=== PATIENT | male | born 1955 | race Two or more races ===

== ENCOUNTER 2024-09-16 16:53 | Inpatient (IN) | payer MEDICARE, OTHER ==
[~2024-09-16] VITALS: Ht 172.7 cm; Wt 89.8 kg
[2024-09-16 18:00] LABS: CARBON DIOXIDE 24 mmol/L (21-32); CHLORIDE 97 mmol/L (98-107); CREATININE 1.5 mg/dL (0.6-1.3); GLUCOSE 108 mg/dL (74-106); SODIUM SERUM 136 mmol/L (136-145); UREA NITROGEN, BLOOD 25 mg/dL (7-18)
[2024-09-16] MEDS: DILTIAZEM HCL 25 MG IV IVP ONE (18:00)
[2024-09-16] MEDS ORDERED: DILTIAZEM HCL 25 MG IV ONE (18:02)
[2024-09-16] MEDS ORDERED: BETA15CR5 TP (18:07)
[2024-09-16] MEDS ORDERED: CARV25TA PO (18:07)
[2024-09-16] MEDS ORDERED: DEEP SEA NASAL IH (18:07)
[2024-09-16] MEDS ORDERED: ERGO500093 PO (18:07)
[2024-09-16] MEDS ORDERED: IBUP-1957 PO (18:07)
[2024-09-16] MEDS ORDERED: FLUT1BLS6 IH (18:07)
[2024-09-16 18:11] LABS: BASOPHILS % (AUTO) 0.4 % (0.0-2.0); EOSINOPHILS # (AUTO) 0.1 K/uL (0.0-0.7); EOSINOPHILS % (AUTO) 1.1 % (0.0-6.0); HEMATOCRIT 45 % (39-51); HEMOGLOBIN 15.6 g/dL (13.5-17.5); LYMPHOCYTES # (AUTO) 0.6 K/uL (0.8-4.8); LYMPHOCYTES % (AUTO) 7.7 % (20.0-44.0); MEAN CORPUSCULAR HEMOGLOBIN 30 PG (26.0-33.0); MEAN CORPUSCULAR HGB CONC 34 g/dl (31.0-36.0); MEAN CORPUSCULAR VOLUME 86 fL (80-96); MONOCYTES # (AUTO) 0.4 K/uL (0.1-1.30); MONOCYTES % (AUTO) 4.5 % (2.0-12.0); NEUTROPHILS # (AUTO) 6.8 K/uL (1.8-8.9); NEUTROPHILS % (AUTO) 86.3 % (43.0-81.0); RED BLOOD CELL COUNT(AUTO) 5.27 MIL/uL (4.5-6.0); RED CELL DISTRIBUTION WIDTH 14.9 % (11.5-15.0); WHITE BLOOD COUNT (AUTO) 7.9 K/uL (4.3-11.0)
[2024-09-16 18:12] LABS: NT-PRO BNP 8067 pg/mL (0-125)
[2024-09-16] MEDS ORDERED: IOHEXOL-350 100 ML VIAL IV ONE (18:19)
[2024-09-16] MEDS ORDERED: CT SWABBABLE VALVE TRANS SET 1 EA INFUS.SET MC ONE (18:20)
[2024-09-16 18:24] LABS: PLATELET COUNT (AUTO) 27 K/uL (150-450)
[2024-09-16] MEDS: MORPHINE SULFATE INJ 2 MG/ML DISP.SYRIN IV ONE ×2 (18:30→20:29)
[2024-09-16] MEDS: ONDANSETRON HCL/PF 4 MG/2 ML VIAL IV ONE (18:30)
[2024-09-16] MEDS ORDERED: ONDANSETRON HCL/PF 4 MG/2 ML VIAL ONE (18:42)
[2024-09-16] MEDS ORDERED: MORPHINE SULFATE INJ 4 MG/ML DISP.SYRIN ONE ×2 (18:42→20:27)
[2024-09-16] MEDS: DILTIAZEM HCL IV 125 MG in IV D5W 100 ML IV ONE (20:00)
[2024-09-16 21:24] LABS: BAND % (MANUAL) 0 % (0.0-5.0); BASOPHILS % (MANUAL) 0 % (0.0-2.0); EOSINOPHILS % (MANUAL) 0 % (0-4); LYMPHOCYTES % (MANUAL) 6 % (16-48); MONOCYTES % (MANUAL) 7 % (0-11.0); NEUTROPHILS % (MANUAL) 87 (42-76); PLATELET ESTIMATE DECREASED
[2024-09-16] MEDS: KETOROLAC TROMETHAMINE 15 MG/ML VIAL IV ONE (21:31)
[2024-09-16] MEDS ORDERED: ONDANSETRON HCL/PF 4 MG/2 ML VIAL IVP PRN (22:30)
[2024-09-16] MEDS ORDERED: ACETAMINOPHEN 325 MG TABLET PO PRN (22:30)
[2024-09-16] MEDS ORDERED: Z GUARD REMEDY 4 OZ OINT TP PRN (22:30)
[2024-09-16 22:37] LABS: APPEARANCE,URINE CLEAR (CLEAR); BILIRUBIN,URINE NEGATIVE (NEGATIVE); BLOOD, URINE 1+ Ery/uL (NEGATIVE); COLOR,URINE YELLOW (YELLOW); KETONES,URINE NEGATIVE (NEGATIVE); LEUKOCYTE ESTERASE ,URINE NEGATIVE (NEGATIVE); NITRITE, URINE NEGATIVE (NEGATIVE); PROTEIN,URINE 2+ mg/dl (NEGATIVE); UGLUCOSE NEGATIVE (NEGATIVE); UROBILINOGEN,URINE 0.2 EU/dL (0.2)
[2024-09-16 22:50] LABS: ADD URINE CULTURE NO; BACTERIA,URINE Few /HPF (None Seen)
[2024-09-16 22:52] LABS: SQUAMOUS EPITHELIAL CELL,UR Few /HPF (None Seen)
[2024-09-16 22:54] LABS: MUCUS,URINE Few /LPF (None Seen)
[2024-09-16 23:00] VITALS: BP 145/98; O2SAT 97
[2024-09-16 23:15] VITALS: BP 145/98; O2SAT 97
[2024-09-17] VITALS (16 sets, daily range): BP systolic 102–144; BP diastolic 61–92; TEMP 98–98.8; O2SAT 87–100
[2024-09-17] MEDS ORDERED: METHOCARBAMOL (750MG) 750 MG TABLET PO SCH
[2024-09-17] MEDS: DILTIAZEM HCL IV 125 MG in IV NS 0.9% 100 ML IV PRN (00:13)
[2024-09-17] MEDS: ZOLPIDEM TARTRATE 5 MG TABLET PO PRN (00:17)
[2024-09-17] MEDS: METOPROLOL TARTRATE 25 MG TABLET PO SCH ×2 (00:18→08:26)
[2024-09-17] MEDS: HYDROMORPHONE 1 MG/1 ML DISP.SYRIN IV PRN (00:18)
[2024-09-17] MEDS: PREGABALIN 25 MG CAPSULE PO SCH (01:18)
[2024-09-17] MEDS: AZITHROMYCIN 250 MG TABLET PO ONE (01:23)
[2024-09-17] MEDS: METHOCARBAMOL (750MG) 750 MG TABLET PO SCH (01:44)
[2024-09-17] MEDS: METHOCARBAMOL (750MG) 750 MG TABLET ONE (01:44)
[2024-09-17] MEDS: DILTIAZEM HCL 25 MG IV ONE ×2 (03:21)
[2024-09-17 04:42] LABS: BASOPHILS % (AUTO) 0.2 % (0.0-2.0); EOSINOPHILS % (AUTO) 0.6 % (0.0-6.0); HEMATOCRIT 41 % (39-51); HEMOGLOBIN 14.5 g/dL (13.5-17.5); LYMPHOCYTES # (AUTO) 0.6 K/uL (0.8-4.8); MEAN CORPUSCULAR HEMOGLOBIN 30 PG (26.0-33.0); MEAN CORPUSCULAR HGB CONC 35 g/dl (31.0-36.0); MEAN CORPUSCULAR VOLUME 85 fL (80-96); MONOCYTES # (AUTO) 0.5 K/uL (0.1-1.30); MONOCYTES % (AUTO) 6.3 % (2.0-12.0); NEUTROPHILS # (AUTO) 6.3 K/uL (1.8-8.9); NEUTROPHILS % (AUTO) 84.9 % (43.0-81.0); RED CELL DISTRIBUTION WIDTH 14.6 % (11.5-15.0); WHITE BLOOD COUNT (AUTO) 7.4 K/uL (4.3-11.0)
[2024-09-17 04:50] LABS: PLATELET COUNT (AUTO) 25 K/uL (150-450)
[2024-09-17 05:01] LABS: ANISOCYTOSIS 1+; BAND % (MANUAL) 1 % (0.0-5.0); BASOPHILS % (MANUAL) 0 % (0.0-2.0); EOSINOPHILS % (MANUAL) 0 % (0-4); LYMPHOCYTES % (MANUAL) 7 % (16-48); MONOCYTES % (MANUAL) 5 % (0-11.0); NEUTROPHILS % (MANUAL) 87 (42-76); PLATELET ESTIMATE DECREASED
[2024-09-17 05:07] LABS: CALCIUM, SERUM 9.4 mg/dL (8.5-10.1); CREATININE 1.6 mg/dL (0.6-1.3); MAGNESIUM 1.5 mg/dL (1.8-2.4); PHOSPHORUS 4.9 mg/dL (2.5-4.9); POTASSIUM 4.1 mmol/L (3.5-5.1)
[2024-09-17 05:23] LABS: THYROID STIMULATING HORMONE 3.09 uIU/mL (0.358-3.74)
[2024-09-17] MEDS: AZITHROMYCIN 250 MG TABLET PO SCH (08:16)
[2024-09-17] MEDS ORDERED: Medication Not On Formulary EA (Fluticasone/Umeclidin/Vilanter (Trelegy Ellipta 100-62.5 IH SCH (09:00)
[2024-09-17] MEDS: DILTIAZEM HCL CD 240 MG PO SCH (09:29)
[2024-09-17] MEDS: MAGNESIUM OXIDE 400 MG TABLET PO ONE (10:34)
[2024-09-17 11:20] LABS: ALBUMIN 3.4 g/dL (3.4-5.0); BILIRUBIN,DIRECT 0.4 mg/dL (0.0-0.2); TOTAL PROTEIN, SERUM 7.9 g/dL (6.4-8.2)
== END 2024-09-17 16:13 | disposition home or self-care (01) | DRG 309 ==
LOC: ER 17:02 → ICU 21:43
PROVIDERS: ADMIT Nurse Practitioner Family; ATTEND Internal Medicine
DX: I48.91 Unspecified atrial fibrillation (principal); E87.1 Hypo-osmolality and hyponatremia; J21.9 Acute bronchiolitis, unspecified; N17.9 Acute kidney failure, unspecified; I13.10 Hypertensive heart and chronic kidney disease without heart failure, with stage 1 through stage 4 chronic kidney disease, or unspecified chronic kidney disease; N18.9 Chronic kidney disease, unspecified; I25.10 Atherosclerotic heart disease of native coronary artery without angina pectoris; D69.6 Thrombocytopenia, unspecified; E78.5 Hyperlipidemia, unspecified; E83.42 Hypomagnesemia; G47.33 Obstructive sleep apnea (adult) (pediatric); Z87.891 Personal history of nicotine dependence; R91.8 Other nonspecific abnormal finding of lung field; R59.0 Localized enlarged lymph nodes; E83.9 Disorder of mineral metabolism, unspecified; E11.22 Type 2 diabetes mellitus with diabetic chronic kidney disease; M54.41 Lumbago with sciatica, right side
CPT/HCPCS: 36415; 71045-TC; 72131-TC; 76770-TC; 80048-TC; 80061-TC; 80076-TC; 81001; 83735-TC; 83880; 84100-TC; 84443-TC; 84484-TC; 85025-TC; 87081-TC; 93307-TC; A4223; G0378; J1171; J1885; J2270; J2405; J3490; J7030; J7060; Q9967